=== PATIENT | male | born 1975 | race Hispanic/Latino ===

== ENCOUNTER 2018-04-26 11:10 | Day surgery (SDC) | payer BC ==
[2018-04-25 11:48] VITALS: BMI 22.2
[2018-04-26] MEDS ORDERED: Lactated Ringer's 1,000 ML IV ONE (12:01)
[2018-04-26] MEDS ORDERED: Midazolam 2 MG/2 ML VIAL ONE (12:09)
[2018-04-26] MEDS ORDERED: Propofol 10 mg/ml Inj (20 ML) ONE (12:09)
[2018-04-26] MEDS ORDERED: ceFAZolin IV 1 gm in Dextrose 0 GM/0 ML BAG IVPB ONE (12:18)
[2018-04-26] MEDS ORDERED: Bupivacaine HCl 0.25% PF (30 ml) Inj ONE (12:43)
[2018-04-26] MEDS ORDERED: Bupivacaine HCl 0.25% PF (30 ml) Inj IJ ONE (13:00)
[2018-04-26] MEDS ORDERED: Dexamethasone 4 mg/1 ml ONE (13:07)
[2018-04-26] MEDS ORDERED: Oxycodone/Acetaminophen 5/325 mg Tab PO PRN ×2 (13:59→16:57)
[2018-04-26] MEDS ORDERED: Dexamethasone 4 mg/1 ml IVP PRN (14:01)
[2018-04-26] MEDS ORDERED: HYDROmorphone 0.5 mg/0.5 ml ISec IVP PRN (14:01)
--- NOTE | 2018-04-26 14:02 | PCM.SURG1 ---
Surgeon's Initial Post Op Note - Surgeon's Notes Surgeon: Dr. Castano Hatchery Man: Dr. Vargas PGY4 Type of Anesthesia: General LMA, Local Pre-Operative Diagnosis: right inguinal hernia Operative Findings: inguinal floor defect Post-Operative Diagnosis: same Operation Performed: right inguinal hernia repair with mesh Specimen/Specimens Removed: cord lipoma and sac Estimated Blood Loss: EBL {In ML}: 5 Blood Products Given: N/A Drains Used: No Drains Post-Op Condition: Good Date of Surgery/Procedure: 04/26/18 Time of Surgery/Procedure: 14:02
--- NOTE | 2018-04-26 14:05 | CP.SDSHP ---
Same Day Surgery H & P - Allergies Allergies: Allergies No Known Allergies Allergy (Verified 04/25/18 11:48) - Physical Exam Vital Signs: Vital Signs 04/26/18 11:51 Temperature 98.3 F Pulse Rate 63 Respiratory 20 Rate Blood Pressure 104/72 O2 Sat by Pulse 97 Oximetry Short Stay Discharge - Short Stay Discharge Admitting Diagnosis/Reason for Visit: K40.9 Disposition: HOME/ ROUTINE Medications: Ibuprofen [Motrin] 600 mg PO Q6 PRN #30 tab PRN Reason: Pain, Mild (1-3) oxyCODONE/Acetaminophen [Percocet 5/325 mg Tab] 1 tab PO Q4 PRN #30 tab PRN Reason: Pain, Moderate (4-7) Referrals: Mercy Ambriz MD [Staff Provider] - Follow-up: in 2 weeks, call office for appointment Instructions: Laceration Repair, Groin Hernia Repair (DC) Additional Instructions (Diet, Activity): can shower, do not bathe no lifting > 10 lbs until cleared by Dr. Ambriz take pain Rx as prescribed Progress Note/Discharge Note with Instructions: Patient s/p right inguinal hernia repair Tolerated procedure well will monitor in PACU once d/c criteria met patient can be discharged home. AKWhite PGY4
[2018-04-26] MEDS ORDERED: Lactated Ringer's 1,000 ML IV SCH (14:15)
[2018-04-26 14:35] VITALS: RESP 18
[2018-04-26 18:36] VITALS: BP 120/77; PULSE 85; TEMP 97.3; O2SAT 95
--- NOTE | 2018-05-02 05:09 | OP ---
PROCEDURE DATE: 04/26/2018 SURGEON: Mercy Ambriz MD ENDOCRINOLOGY TEACHER: Dr. Vargas. ANESTHESIA: General LMA. PREOPERATIVE DIAGNOSIS: Right inguinal hernia. POSTOPERATIVE DIAGNOSIS: Right inguinal hernia. PROCEDURE: Right inguinal hernia repair with mesh. DESCRIPTION OF OPERATION: With the patient in the supine position under adequate general anesthesia, the right groin was prepped and draped in usual sterile manner. Marcaine 0.25% was infiltrated along the right upper groin crease, and a transverse incision was made in the right upper groin crease. The external oblique layer was identified, and the external oblique aponeurosis was opened from the external inguinal ring to the internal inguinal ring. The spermatic cord was identified. It was noted to be mildly thickened, and the spermatic cord was dissected as it passed over the pubic tubercle and elevated over a Erwin drain. Dissection of the spermatic cord revealed a moderately-sized cord lipoma associated with a small indirect hernia sac, both were dissected back to the level of the internal inguinal ring where they were suture ligated with 3-0 Vicryl and excised. The patient appeared to have a moderate varicocele as well, which was left undisturbed. The inguinal floor was examined, and there was noted to be weakness in the medial portion of the inguinal floor without a full-thickness defect. The transversalis layer was relatively flaccid, and it was noted that the transversalis layer could be brought down easily to the shelving edge of the inguinal ligament, and this was done with interrupted with running suture of 0 Vicryl using 2-0 Prolene pull-out sutures. The flat portion of a ProLoop mesh was then trimmed to approximate the inguinal floor and positioned beneath the spermatic cord to reinforce the tissue repair, and it was sutured inferiorly to the shelving edge of the inguinal ligament and superiorly to the transversalis fascia using interrupted sutures of 2-0 Prolene beginning medially at the pubic tubercle and continuing laterally to close the tails beyond the internal inguinal ring and the spermatic cord. The external oblique was then reapproximated over the spermatic cord with running suture of 0 Vicryl, the subcutaneous tissues were approximated with a few interrupted sutures of 3-0 Vicryl, and closure was performed with running subcuticular suture of 4-0 Monocryl and Steri-Strips. Dry sterile dressings were applied. The patient tolerated the procedure well and transferred to recovery room in stable condition. Estimated blood loss for the procedure was 5 mL. Mercy Ambriz MD
== END 2018-04-26 18:40 | disposition home or self-care (01) ==
LOC: H.OPSURG 11:10
PROVIDERS: ATTEND Specialist
DX: K40.90 Unilateral inguinal hernia, without obstruction or gangrene, not specified as recurrent (principal)
CPT/HCPCS: 49505; 88302; C1781; J0690; J1100; J1170; J1885; J2001; J2250; J2405; J2704; J3010; J7030; J7120